=== PATIENT | male | born 1945 | race Caucasian/White ===

== ENCOUNTER 2017-06-26 09:06 | Day surgery (SDC) | payer OTHER ==
[~2017-06-26] VITALS: Ht 188 cm; Wt 109.1 kg
[2017-06-26 09:25] VITALS: BP 145/92; PULSE 63; RESP 20; TEMP 98.7; O2SAT 96
[2017-06-26] MEDS ORDERED: ESSE250T (09:25)
[2017-06-26] MEDS ORDERED: ASPI-183 PO (09:25)
[2017-06-26] MEDS ORDERED: LISI-519 PO (09:25)
[2017-06-26] MEDS ORDERED: SODIUM CHLOR 0.9% 1000 ML IV SCH (09:45)
[2017-06-26 10:11] LABS: AUTOMATED NEUTROPHIL # 2.8 TH/MM3 (1.8-7.7); BASOPHIL % 0.7 % (0.0-2.0); EOSINOPHIL # 0.1 TH/MM3 (0-0.4); EOSINOPHIL % 2.2 % (0.0-4.0); HEMATOCRIT 46.9 % (39.0-51.0); HEMOGLOBIN 16.3 GM/DL (13.0-17.0); LYMPH % 23.1 % (9.0-44.0); MEAN CELL VOLUME 93.4 FL (80.0-100.0); MEAN CORPUSCULAR HEMOGLOBIN 32.5 PG (27.0-34.0); MEAN CORPUSCULAR HGB CONC 34.7 % (32.0-36.0); MEAN PLATELET VOLUME 8.5 FL (7.0-11.0); MONO % 12.2 % (0.0-8.0); MONOCYTE # 0.6 TH/MM3 (0-0.9); NEUT % 61.8 % (16.0-70.0); PLATELET COUNT 176 TH/MM3 (150-450); RED BLOOD COUNT 5.02 MIL/MM3 (4.50-5.90); RED CELL DISTRIBUTION WIDTH 13.5 % (11.6-17.2); WHITE BLOOD COUNT 4.5 TH/MM3 (4.0-11.0)
[2017-06-26] MEDS ORDERED: LIDOCAINE HCL 1% 20 ML VIAL ONE (11:24)
[2017-06-26] MEDS ORDERED: MIDAZOLAM HCL 2 MG/2 ML VIAL ONE (11:39)
--- NOTE | 2017-06-26 12:12 | PD.RAD ---
Post CT Procedure Prog Note Procedure Date: Jun 26, 2017 Supervising Radiologist: Kevin Crocker Anesthesia: Conscious Sedation Plan of Activity Patient to Unit: [facility] Patient Condition: Good See PACS Report for procedural detail/treatment Kevin Crocker MD Jun 26, 2017 12:12
[2017-06-26 12:25] VITALS: BP 152/89; PULSE 50; RESP 20; TEMP 98.2; O2SAT 97
[2017-06-26 12:40] VITALS: BP 140/89; PULSE 47; RESP 18; O2SAT 97
[2017-06-26 12:55] VITALS: BP 129/75; PULSE 50; RESP 18; O2SAT 94
--- NOTE | 2017-06-26 12:59 | RADRPT ---
EXAM DATE/TIME: 06/26/2017 11:58 [place] COMPARISON: No previous studies available for comparison. INDICATIONS : Erythrocytosis. SEDATION TIME: 20 minutes BIOPSY SITE: Left ilium MEDICATION(S): 1.) 2 mg midazolam (Versed) IV 2.) 100 mcg fentanyl (Sublimaze) IV DEVICE(S): 1.) 11 gauge On-Control needle MEDICAL HISTORY : Hypertension. SURGICAL HISTORY : None. ENCOUNTER: Initial ACUITY: 1 day PAIN SCORE: 0/10 LOCATION: Bilateral pelvis A total of one core specimen(s) were obtained and sent to the laboratory for pathologic evaluation. PROCEDURE: 1. CT guided bone marrow biopsy. 2. Conscious sedation with continuous EKG and oximetry monitoring. 3. EKG and oximetry remained stable throughout the procedure. Prior to the procedure informed consent was obtained. Any appropriate prior imaging studies were rev iewed. Using automated exposure control and adjustment of the mA and/or kV according to patient size , radiation dose was kept as low as reasonably achievable to obtain optimal diagnostic quality images . DICOM format image data is available electronically for review and comparison. The site was prepped in a sterile fashion. Full sterile technique was used, including cap, mask, seble rile gloves and gown and a large sterile sheet. Hand hygiene and 2% chlorhexidine and/or betadine/al cohol prep was utilized per protocol for cutaneous antisepsis. The skin and subcutaneous tissues wer e infiltrated with local anesthetic solution. With CT guidance the previously identified target was localized. Biopsy was performed using the presc ribed needle as above. Following biopsy marrow aspiration was performed with repeat puncture. Adequa te hemostasis was obtained with compression at the puncture site. Follow-up CT scan reveals no hemorrhage. Conscious sedation was performed with the prescribed dosages and duration as above in the presence of an independent trained radiology nurse to assist in the monitoring of the patient. EKG and oximetry remained stable throughout the procedure. The patient tolerated the procedure well and there were no complications. The patient was sent to Radiology Outpatient Unit in stable condition. CONCLUSION: 1. Uncomplicated CT guided bone marrow aspirate. 2. Uncomplicated CT guided bone marrow biopsy. Kevin Crocker MD on June 26, 2017 at 12:56 Board Certified Radiologist. This report was verified electronically.
[2017-06-26 13:25] VITALS: BP 142/78; PULSE 50; RESP 18; O2SAT 94
[2017-06-26 13:55] VITALS: BP 139/79; PULSE 50; RESP 18; O2SAT 94
== END 2017-06-26 15:00 | disposition home or self-care (01) ==
LOC: HRAD 09:06 → HRIP 09:11 → HRAD 15:00
PROVIDERS: ATTEND Internal Medicine Hematology & Oncology
DX: D75.1 Secondary polycythemia (principal); I10 Essential (primary) hypertension; G50.0 Trigeminal neuralgia; E11.9 Type 2 diabetes mellitus without complications; M25.50 Pain in unspecified joint; D72.828 Other elevated white blood cell count
CPT/HCPCS: 38222; 77012; 85025; 85097; 88184; 88185; 88237; 88264; 88280; 88305; 88311; 88313; 99152; 99153; J2250; J3010